=== PATIENT | female | born 1985 ===

== ENCOUNTER 2019-04-04 23:50 | Emergency (ER) | payer OTHER ==
[~2019-04-04] VITALS: Ht 172.7 cm; Wt 56.4 kg
[2019-04-05 00:28] LABS: BASO # 0.1 (0.02-0.10); EOS # 0.4 (0.04-0.40); EOS % 3.4 % (1.0-5.0); HEMATOCRIT 42.2 % (37.0-47.0); HEMOGLOBIN 13.6 g/dL (12.5-16.0); LYMPH# 3.7 (1.50-4.00); MEAN CELL VOLUME 93 fl (78-100); MEAN CORPUSCULAR HEMOGLOBIN 30 pg (27-31); MEAN CORPUSCULAR HGB CONC 32 g/dL (33-37); MEAN PLATELET VOLUME 9.8 fl (7.4-10.4); MONO # 0.6 (0.20-0.80); NEU # 6.7 (1.40-6.50); PLATELET COUNT 332 K/mm3 (130-400); RED BLOOD COUNT 4.52 M/mm3 (4.10-5.30); RED CELL DISTRIBUTION WIDTH 13.3 % (11.5-14.5); WHITE BLOOD COUNT 11.6 K/mm3 (4.8-10.8)
[2019-04-05 00:34] LABS: ALBUMIN 4.7 g/dL (3.5-5.0); SODIUM 142 mmol/L (136-145)
[2019-04-05 00:36] LABS: CALCIUM 8.8 mg/dL (8.3-10.5)
[2019-04-05 00:37] LABS: GLUCOSE 89 mg/dL (65-105); TOTAL PROTEIN 8.4 g/dL (6.4-8.3)
[2019-04-05 00:38] LABS: CARBON DIOXIDE 26 mmol/L (22-29)
[2019-04-05 00:40] LABS: ALCOHOL IN-HOUSE 255 mg/dL (<10)
[2019-04-05 00:42] LABS: AST-SGOT 26 U/L (5-34)
[2019-04-05 00:44] LABS: ALT/SGPT 13 U/L (0-55)
[2019-04-05 00:51] LABS: URINE APPEARANCE HAZY; URINE COLOR YELLOW; URINE PROTEIN(semi-quant) TRACE mg/dL (NEGATIVE)
[2019-04-05 00:52] LABS: URINE BILIRUBIN NEGATIVE (NEGATIVE); URINE GLUCOSE NEGATIVE (NEGATIVE); URINE KETONE NEGATIVE (NEGATIVE); URINE UROBILINOGEN NORMAL (NORMAL)
[2019-04-05 00:53] LABS: URINE BLOOD NEGATIVE (NEGATIVE); URINE LEUKOCYTE ESTERASE TRACE (NEGATIVE); URINE MUCUS PRESENT (NOT PRESENT); URINE NITRATE POSITIVE (NEGATIVE)
[2019-04-05 00:56] LABS: TOTAL BILIRUBIN 0.1 mg/dL (0.2-1.2)
[2019-04-05 02:26] VITALS: BP 130/84
[2019-04-05 03:05] LABS: ACETAMINOPHEN < 1 ug/mL
== END 2019-04-05 02:15 ==
LOC: ED 23:50
PROVIDERS: Family Medicine
DX: R45.851 Suicidal ideations (principal); F10.129 Alcohol abuse with intoxication, unspecified